=== PATIENT | male | born 1965 ===

== ENCOUNTER 2022-11-29 10:49 | Inpatient (IN) ==
[2022-11-29] MEDS ORDERED: SODIUM CHLORIDE 0.9% 1,000 ML IV STA (12:14)
[2022-11-29] MEDS ORDERED: metroNIDAZOLE INJ 500 MG/100 ML PREMIX IV ONE (12:24)
[2022-11-29] MEDS ORDERED: LEVOFLOXACIN INJ 750 MG/150 ML PREMIX IV ONE (12:24)
[2022-11-29 12:26] LABS: Basophils # 0.1 10*3/uL (0.0-0.2); Basophils % 0.5 % (0.0-0.8); Eosinophils # 0.3 10*3/uL (0.0-0.87); Hematocrit 42.3 VOL% (42.0-52.0); Hemoglobin 14.3 GM/DL (14.0-18.0); Immature Granulocytes % 2.3 %; Immature Granulocytes Absolute 0.26 #; Lymphocytes # 1.2 10*3/uL (1.4-4.0); Lymphocytes % 10.8 % (21.2-54.2); Mean Corpuscular HGB Conc 33.8 GM/DL (32-36); Mean Corpuscular Volume 95.7 FL (87-102); Mean Platelet Volume 10.1 FL (9.6-12.0); Monocytes # 1.2 10*3/uL (0.11-0.8); Monocytes % 10.2 % (1.7-12.7); Neutrophils % 73.2 % (38.7-73.9); Platelet Count 234 T/CUMM (130-400); Red Blood Count 4.42 MC/CUMM (3.8-5.5); Red Cell Distribution Width 13.2 % (9.3-17.3); White Blood Count 11.33 T/CUMM (4-12)
[2022-11-29] MEDS ORDERED: KETOROLAC 15 MG/1 ML VIAL IV PRN (12:26)
[2022-11-29] MEDS ORDERED: HYDROmorphone 1 MG/1 ML SYRINGE IV PRN ×3 (12:26→14:41)
[2022-11-29] MEDS ORDERED: BISACODYL 5 MG TABLET PO PRN (12:26)
[2022-11-29] MEDS ORDERED: ONDANSETRON 4 MG/2 ML VIAL IV PRN ×2 (12:26→14:41)
[2022-11-29] MEDS ORDERED: ACETAMINOPHEN 325 MG TABLET PO PRN (12:26)
[2022-11-29 12:36] LABS: INR 0.9
[2022-11-29 12:42] LABS: Alanine Aminotransferase 25 U/L (16-61); Albumin 3.8 G/DL (3.4-5.0); Alkaline Phosphatase 77 U/L (45-117); Aspartate Amino Transferase 20 U/L (0-37); Blood Urea Nitrogen 11 MG/DL (7-18); Carbon Dioxide 29 MMOL/L (21-32); Chloride 105 MMOL/L (98-107); Glucose 114 MG/DL (74-106); Osmolality,Calculated 276.5 MOS/KG (273-304); Potassium 4.2 MMOL/L (3.5-5.1); Sodium 139 MMOL/L (136-145); Total Protein 7.9 G/DL (6.4-8.2)
[2022-11-29] MEDS ORDERED: BUPIVACAINE MPF 0.25% 10 ML VIAL ONE (12:46)
[2022-11-29] MEDS ORDERED: LIDOCAINE 1%/EPI INJ 20 ML VIAL ONE (12:47)
[2022-11-29] MEDS ORDERED: ROCURONIUM 50 MG/5 ML VIAL IV ONE (12:54)
[2022-11-29] MEDS ORDERED: propofoL 200 MG/20 ML VIAL IV ONE (12:54)
[2022-11-29] MEDS ORDERED: SUCCINYLCHOLINE 200 MG/10 ML VIAL ONE (12:54)
[2022-11-29] MEDS ORDERED: fentaNYL 100 MCG/2 ML VIAL ONE ×2 (12:54→14:02)
[2022-11-29] MEDS ORDERED: ONDANSETRON 4 MG/2 ML VIAL ONE (12:54)
[2022-11-29] MEDS ORDERED: MIDAZOLAM 2 MG/2 ML VIAL ONE (12:54)
[2022-11-29] MEDS ORDERED: LIDOCAINE 2% 5 ML VIAL ONE (12:54)
[2022-11-29 12:55] LABS: Band Neutrophils 9 % (0-10); Eosinophils 5 % (0-10); Lymphocytes 12 % (20-55); Platelet Estimate Normal; Total Cells Counted 100
[2022-11-29] MEDS ORDERED: KETOROLAC 30 MG/1 ML VIAL IV PRN (13:00)
[2022-11-29] MEDS ORDERED: SEVOFLURANE 1 UNIT/15 MINUTE INH ONE (13:47)
[2022-11-29] MEDS ORDERED: DEXAMETHASONE 4 MG/1 ML VIAL ONE (13:47)
[2022-11-29] MEDS ORDERED: GLYCOPYRROLATE 0.4 MG/2 ML VIAL ONE ×2 (13:54→13:55)
[2022-11-29] MEDS ORDERED: NEOSTIGMINE 10 MG/10 ML VIAL ONE (13:54)
[2022-11-29] MEDS ORDERED: ACETAMINOPHEN INJ 1,000 MG/100 ML VIAL IV ONE (13:57)
[2022-11-29] MEDS: VANCOMYCIN INJ 1,750 MG in SODIUM CHLORIDE 0.9% 500 ML IV SCH (15:35)
[2022-11-29] MEDS: LEVOFLOXACIN INJ 750 MG/150 ML PREMIX IV SCH (15:40)
[2022-11-29] MEDS: metroNIDAZOLE INJ 500 MG/100 ML PREMIX IV SCH (21:09)
[2022-11-30] MEDS: VANCOMYCIN INJ 1,750 MG in SODIUM CHLORIDE 0.9% 500 ML IV SCH ×2 (04:16→15:03)
[2022-11-30 06:01] LABS: Basophils % 0.3 % (0.0-0.8); Eosinophils % 0.2 % (0.00-10.9); Hematocrit 39.2 VOL% (42.0-52.0); Hemoglobin 13.3 GM/DL (14.0-18.0); Immature Granulocytes Absolute 0.26 #; Lymphocytes # 0.9 10*3/uL (1.4-4.0); Lymphocytes % 7.1 % (21.2-54.2); Mean Corpuscular HGB Conc 33.9 GM/DL (32-36); Mean Corpuscular Volume 95.4 FL (87-102); Mean Platelet Volume 9.7 FL (9.6-12.0); Monocytes % 7.5 % (1.7-12.7); Neutrophils % 82.9 % (38.7-73.9); Platelet Count 266 T/CUMM (130-400); Red Blood Count 4.11 MC/CUMM (3.8-5.5); White Blood Count 12.79 T/CUMM (4-12)
[2022-11-30 06:05] LABS: Calcium 9.1 MG/DL (8.5-10.1); Osmolality,Calculated 278.7 MOS/KG (273-304); Potassium 4.2 MMOL/L (3.5-5.1)
[2022-11-30] MEDS: metroNIDAZOLE INJ 500 MG/100 ML PREMIX IV SCH ×3 (06:22→21:50)
[2022-11-30] MEDS: PANTOPRAZOLE 40 MG TABLET PO SCH (09:29)
[2022-11-30] MEDS: LEVOFLOXACIN INJ 750 MG/150 ML PREMIX IV SCH (09:29)
[2022-11-30] MEDS: SODIUM HYPOCHLORITE 0.25% IRRIG 473 ML BOTTLE TOP SCH (10:00)
[2022-12-01] MEDS: metroNIDAZOLE INJ 500 MG/100 ML PREMIX IV SCH ×3 (05:35→23:46)
[2022-12-01] MEDS: PANTOPRAZOLE 40 MG TABLET PO SCH (09:12)
[2022-12-01] MEDS: SODIUM HYPOCHLORITE 0.25% IRRIG 473 ML BOTTLE TOP SCH (09:12)
[2022-12-01] MEDS: VANCOMYCIN INJ 1,750 MG in SODIUM CHLORIDE 0.9% 500 ML IV SCH ×2 (09:12→21:36)
[2022-12-01] MEDS: LEVOFLOXACIN INJ 750 MG/150 ML PREMIX IV SCH (11:08)
[2022-12-02 05:57] LABS: Basophils # 0.1 10*3/uL (0.0-0.2); Basophils % 0.6 % (0.0-0.8); Eosinophils # 0.5 10*3/uL (0.0-0.87); Eosinophils % 6.1 % (0.00-10.9); Hematocrit 42.2 VOL% (42.0-52.0); Hemoglobin 14.6 GM/DL (14.0-18.0); Immature Granulocytes % 11.1 %; Immature Granulocytes Absolute 0.99 #; Lymphocytes # 1.8 10*3/uL (1.4-4.0); Lymphocytes % 20.6 % (21.2-54.2); Mean Corpuscular HGB Conc 34.6 GM/DL (32-36); Mean Corpuscular Volume 94.8 FL (87-102); Mean Platelet Volume 9.2 FL (9.6-12.0); Monocytes # 0.7 10*3/uL (0.11-0.8); Monocytes % 8.2 % (1.7-12.7); Neutrophils % 53.4 % (38.7-73.9); Platelet Count 279 T/CUMM (130-400); Red Blood Count 4.45 MC/CUMM (3.8-5.5); White Blood Count 8.89 T/CUMM (4-12)
[2022-12-02] MEDS: metroNIDAZOLE INJ 500 MG/100 ML PREMIX IV SCH (06:11)
[2022-12-02 06:20] LABS: Eosinophils 5 % (0-10); Giant Platelets Few; Lymphocytes 27 % (20-55); Platelet Estimate Adequate; Total Cells Counted 100
[2022-12-02] MEDS ORDERED: LACTATED RINGERS 1,000 ML IV SCH (08:30)
[2022-12-02] MEDS ORDERED: fentaNYL 100 MCG/2 ML VIAL ONE (08:30)
[2022-12-02] MEDS ORDERED: BUPIVACAINE MPF 0.25% 10 ML VIAL ONE (08:36)
[2022-12-02] MEDS ORDERED: LIDOCAINE 1%/EPI INJ 20 ML VIAL ONE (08:37)
[2022-12-02] MEDS ORDERED: DEXAMETHASONE 4 MG/1 ML VIAL ONE (09:01)
[2022-12-02] MEDS ORDERED: propofoL 200 MG/20 ML VIAL IV ONE ×2 (09:01→09:13)
[2022-12-02] MEDS ORDERED: SEVOFLURANE 1 UNIT/15 MINUTE INH ONE (09:01)
[2022-12-02] MEDS ORDERED: SUCCINYLCHOLINE 200 MG/10 ML VIAL ONE (09:01)
[2022-12-02] MEDS ORDERED: LIDOCAINE 2% 5 ML VIAL ONE (09:01)
[2022-12-02] MEDS ORDERED: ONDANSETRON 4 MG/2 ML VIAL ONE (09:01)
[2022-12-02] MEDS ORDERED: PHENYLEPHRINE 1 MG/10 ML SYRINGE IV ONE (09:05)
[2022-12-02] MEDS ORDERED: KETOROLAC 30 MG/1 ML VIAL ONE (09:17)
[2022-12-02 10:41] VITALS: BP 138/74
[2022-12-02] MEDS: LEVOFLOXACIN INJ 750 MG/150 ML PREMIX IV SCH (12:09)
[2022-12-02] MEDS: VANCOMYCIN INJ 1,750 MG in SODIUM CHLORIDE 0.9% 500 ML IV SCH (12:21)
[2022-12-02] MEDS: PANTOPRAZOLE 40 MG TABLET PO SCH (12:21)
[2022-12-02] MEDS: SODIUM HYPOCHLORITE 0.25% IRRIG 473 ML BOTTLE TOP SCH (12:34)
== END 2022-12-02 15:50 | disposition home or self-care (01) | DRG 570 ==
LOC: N.ED 10:49 → N.3E 12:26
PROVIDERS: ADMIT Surgery; ATTEND Surgery